=== PATIENT | female | born 1985 | race Caucasian/White ===

== ENCOUNTER 2020-01-09 23:10 | Emergency (ER) | payer MEDICAID ==
[~2020-01-09] VITALS: Ht 170.2 cm; Wt 68.9 kg
[2020-01-09 23:16] VITALS: Ht 170.2 cm; Wt 68.9 kg
[2020-01-10 04:29] VITALS: BP 114/63
== END 2020-01-10 04:15 | disposition home or self-care (01) ==
LOC: ED 23:10
DX: S82.392A Other fracture of lower end of left tibia, initial encounter for closed fracture (principal); S82.491A Other fracture of shaft of right fibula, initial encounter for closed fracture; W01.0XXA Fall on same level from slipping, tripping and stumbling without subsequent striking against object, initial encounter; Y93.89 Activity, other specified; Y92.89 Other specified places as the place of occurrence of the external cause; Y99.8 Other external cause status
CPT/HCPCS: J3010; J3490